=== PATIENT | male | born 1990 | race Caucasian/White ===

== ENCOUNTER 2023-03-13 01:13 | Emergency (ER) | payer OTHER, SELFPAY ==
--- NOTE | ~2023-03-13 | CT_ITS ---
Non-contrast Head CT History: Jerking movements COMPARISON: 05/29/2009 Technique: Axial non-contrast imaging of the brain was performed. Dose reduction technique was used on this scan by utilizing automated exposure control and iterative reconstruction technique. The dose -length product (DLP) was 681.00 mGy-cm. Findings: There is no evidence of intracranial hemorrhage, mass lesion, or acute infarct. Brain par enchyma appears normal. The ventricles and subarachnoid spaces are normal in size. The calvarium ap pears normal. The visualized paranasal sinuses and mastoid air cells are clear. Impression: No significant abnormality seen. Exam mildly degraded by motion artifact. Reviewed, dictated and finalized at location M. Impression: No significant abnormality seen. Exam mildly degraded by motion artifact.
[2023-03-13 01:16] VITALS: BP 176/88; PULSE 89; RESP 20; O2SAT 97
--- NOTE | 2023-03-13 02:01 | ED_ITS ---
HPI - General Adult General Chief complaint: Unspecified Stated complaint: JERKING MOTIONS, UNSTEADY GAIT Time Seen by Provider: 03/13/23 01:20 Related Data Allergies Allergy/AdvReac Type Severity Reaction Status Date / Time QUETIAPINE FUMARATE Allergy Mild nosebleeds Uncoded 08/22/10 14:43 Course Vital Signs Vital signs: Vital Signs Pulse Rate 89 03/13/23 01:16 Respiratory Rate 20 03/13/23 01:16 Blood Pressure 176/88 H 03/13/23 01:16 Pulse Oximetry 97 03/13/23 01:16 Oxygen Delivery Room Air 03/13/23 01:16 Pulse Rate 89 03/13/23 01:16 Respiratory Rate 20 03/13/23 01:16 Blood Pressure 176/88 H 03/13/23 01:16 Pulse Oximetry 97 03/13/23 01:16 Oxygen Delivery Room Air 03/13/23 01:16 Medical Decision Making Vital Signs Vital Signs: Vital Signs Pulse Rate 89 03/13/23 01:16 Respiratory Rate 20 03/13/23 01:16 Blood Pressure 176/88 H 03/13/23 01:16 Pulse Oximetry 97 03/13/23 01:16 Oxygen Delivery Room Air 03/13/23 01:16 Pulse Rate 89 03/13/23 01:16 Respiratory Rate 20 03/13/23 01:16 Blood Pressure 176/88 H 03/13/23 01:16 Pulse Oximetry 97 03/13/23 01:16 Oxygen Delivery Room Air 03/13/23 01:16 Discharge Plan Discharge Follow-up/Referrals: PHYSICIAN,[employer]PERVISOR [Primary Care Provider] -
--- NOTE | 2023-03-13 02:12 | ED.GENADULT ---
HPI - General Adult General Chief complaint: Unspecified <Durga Naik PA-C - Last Filed: 03/13/23 03:30> Stated complaint: JERKING MOTIONS, UNSTEADY GAIT <Durga Naik PA-C - Last Filed: 03/13/23 03:30> Time Seen by Provider: 03/13/23 01:20 <Durga Naik PA-C - Last Filed: 03/13/23 03:30> Source: patient <Durga Naik PA-C - Last Filed: 03/13/23 03:30> Mode of arrival: EMS <Durga Naik PA-C - Last Filed: 03/13/23 03:30> Limitations: other <Durga Naki PA-C - Last Filed: 03/13/23 03:30> History of Present Illness HPI narrative: This is a 32-year-old male who presents to the ED via EMS from inpatient rehab center. He is here after staff called EMS for having jerking motions and not responding. Patient is not cooperative during my initial interview and exam. He is mumbling and only responds to some of my questions. History is therefore limited. He does make note of taking Benadryl or Ativan, is unable to elaborate on this. Per triage note he is at [facility] [place] not facility for detox of fentanyl. States last dose of fentanyl was 4 and he took 2 to 3 capsules/day. <Durga Naik PA-C - Last Filed: 03/13/23 03:30> This is a 32-year-old male who presents to the ED via EMS from inpatient rehab center. He is here after staff called EMS for having jerking motions and not responding. Patient is not cooperative during my initial interview and exam. He is mumbling and only responds to some of my questions. History is therefore limited. He was given Ativan at the previous facility before his arrival which may explain some of his symptoms. Per triage note he is at [facility] facility for detox of fentanyl. States last dose of fentanyl was 4 and he took 2 to 3 capsules/day. <Mesfin Galarza MD - Last Filed: 03/13/23 04:40> Related Data Allergies/adverse reactions: Allergies Allergy/AdvReac Type Severity Reaction Status Date / Time QUETIAPINE FUMARATE Allergy Mild nosebleeds Uncoded 08/22/10 14:43 <Durga Naik PA-C - Last Filed: 03/13/23 03:30> Review of Systems Review of Systems: ROS unobtainable: Yes other <JIMMY Chavarria Last Filed: 03/13/23 03:30> PMFSH Past Medical History Medical History: Medical History Asperger syndrome Substance use disorder <JIMMY Chavarria Last Filed: 03/13/23 03:30> Exam Narrative: GENERAL: Well-appearing, well-nourished, and in no acute distress. Appears somnolent. HEAD: Normocephalic, atraumatic. EYES: PERRLA and EOMI. ENT: Nares clear, no rhinorrhea or epistaxis. Mucous membranes moist. Oropharynx without tonsillar hypertrophy exudate or other lesions. NECK: Supple. No adenopathy or masses. CHEST: No respiratory distress. Clear to auscultation. No wheezes rales or rhonchi HEART: Regular rate and rhythm. No murmur heard. Normal peripheral pulses. ABDOMEN: Soft, nontender, nondistended, normal active bowel sounds. EXTREMITIES: Normal range of motion. No edema. SKIN: Warm, dry, no rash. NEURO: Alert and oriented x3. Moves extremities spontaneously. Uncooperative with full neuro exam. PSYCH: Unable to assess <JIMMY Chavarria Last Filed: 03/13/23 03:30> Course Vital Signs Vital signs: Vital Signs Pulse Rate 89 03/13/23 01:16 Respiratory Rate 20 03/13/23 01:16 Blood Pressure 176/88 H 03/13/23 01:16 Pulse Oximetry 97 03/13/23 01:16 Oxygen Delivery Room Air 03/13/23 01:16 Pulse Rate 67 03/13/23 03:31 Respiratory Rate 20 03/13/23 03:31 Blood Pressure 122/88 03/13/23 03:31 Pulse Oximetry 100 03/13/23 03:31 Oxygen Delivery Room Air 03/13/23 01:16 <JIMMY Chavarria Last Filed: 03/13/23 03:30> Vital Signs Pulse Rate 89 03/13/23 01:16 Respiratory Rate 20 03/13/23 01:16 Blood Pressure 176/88 H 03/13/23 01:16 Pulse Oximetry 97 03/13/23 01:16 Oxygen Delivery Room
[2023-03-13 02:18] LABS: Basophils Percent Auto 0.3 % (0.2-1.2); Eosinophils Absolute Auto 0.1 K/mm3 (0-0.3); Eosinophils Percent Auto 0.4 % (0-4.4); Hematocrit 41.3 % (42.0-52.0); Hemoglobin 13.9 g/dL (14.0-18.0); Immature Granulocyte Absolute 0.03 K/mm3 (0.00-0.031); Immature Granulocyte Percent A 0.3 % (0-0.5); Lymphocytes Absolute Auto 3.39 K/mm3 (0.9-3.2); Lymphocytes Percent Auto 29.3 % (18.3-44.2); Mean Corpuscular HGB Conc 33.7 g/dl (32-36); Mean Corpuscular Hemoglobin 31.6 pg (26-34); Mean Corpuscular Volume 93.9 fl (80-100); Mean Platelet Volume 10.2 fl (7.4-10.4); Monocytes Absolute Auto 0.9 K/mm3 (0.1-0.6); Monocytes Percent Auto 7.6 % (2.6-8.5); Neutrophils Absolute Auto 7.2 K/mm3 (1.3-6.7); Neutrophils Percent Auto 62.1 % (45.5-73.1); Platelet Count Result 235 k/mm3 (150-375); Red Cell Distribution Width 11.7 % (11.5-14.5); White Blood Count 11.6 K/mm3 (4.5-10.0)
--- NOTE | 2023-03-13 02:24 | PC.NURSE ---
Pt ambulated to bathroom to try and provide urine sample. Unable to provide urine sample at this time. Water given to pt to drink to encourage voiding.
[2023-03-13 02:29] LABS: Alanine Aminotransferase 19 U/L (6-50); Alkaline Phosphatase 76 U/L (38-126); Anion Gap 6 mmol/L (8-16); Aspartate Amino Transferase 23 U/L (17-59); Bilirubin,Total 0.4 mg/dL (0.2-1.3); Blood Urea Nitrogen 10 mg/dL (9-20); Calcium 9.1 mg/dL (8.4-10.2); Carbon Dioxide 28 mmol/L (22-30); Chloride 103 mmol/L (98-107); Estimated CRCL calculation 117 ml/min; Estimated Glomerular Filt Rate > 60; Glucose 106 mg/dL (65-110); Potassium 4.1 mmol/L (3.4-5.0); Sodium 137 mmol/L (137-145)
[2023-03-13 02:32] LABS: Ethanol < 10 mg/dL (<10)
--- NOTE | 2023-03-13 02:36 | PC.NURSE ---
This RN has put pt on monitor technician, pulse ox, and blood pressure cuff multiple times. Pt continues to remove monitor technician. Durga BELTRAN notified.
[2023-03-13 03:00] LABS: Thyroid Stimulating Hormone 0.179 uIU/mL (0.465-4.680)
--- NOTE | 2023-03-13 03:05 | PC.NURSE ---
When asked pt if he would lay still enough for CT pt states Take your fucking hands off of me . This RN asked pt again if he would lay still for head CT and pt states he will.
--- NOTE | 2023-03-13 03:06 | PC.NURSE ---
Pt removed his IV and gown. Pt moved to room 1 for closer observation.
[2023-03-13 03:31] VITALS: BP 122/88; PULSE 67; RESP 20; O2SAT 100
--- NOTE | 2023-03-13 03:32 | PC.NURSE ---
Pt asked for something to eat. [place] sandwich and chips brought to pt's bedside but he has fallen asleep. No seizure-like activity has been noted during ER stay. Pt remains responsive to verbal and tactile stimuli.
--- NOTE | 2023-03-13 03:43 | PC.NURSE ---
Pt is very restless in ED stretcher. Dr. Galarza notified. Verbal order for 5mg haldol given.
--- NOTE | 2023-03-13 03:55 | PC.NURSE ---
Pt got out of bed on his own and walked into the hallway. When attempted to redirect pt back into his room pt states I'm hungry . Pt back into bed without incident. Pt ate his chips and sandwich.
--- NOTE | 2023-03-13 04:42 | PC.NURSE ---
Attempted to call report to [facility] but there was no answer. Left a message to call back.
[2023-03-13] MEDS: NICOTINE (*PBKC) 21 MG PATCH 1 PATCH TRANSDERM (06:22)
--- NOTE | 2023-03-13 07:05 | PC.NURSE ---
Nurse report given to Amanda DAVIES
--- NOTE | 2023-03-13 07:40 | PC.NURSE ---
erin contacted. states will sent transport for pt.
== END 2023-03-14 00:44 | disposition home or self-care (01) ==
PROVIDERS: Emergency Provider Physician Assistant
DX: F99 Mental disorder, not otherwise specified (principal); F84.5 Asperger's syndrome; R25.1 Tremor, unspecified
CPT/HCPCS: 36415; 70450; 80053; 80307; 84443; 85025; 99284; A9270